=== PATIENT | male | born 1970 | race American Indian/Alaskan Native ===

== ENCOUNTER 2017-05-14 18:36 | Emergency (ER) | payer SELFPAY ==
[2017-05-14 18:37] VITALS: BMI 20.3
[2017-05-14 19:08] VITALS: BP 108/69; PULSE 102; RESP 14; TEMP 98.7; O2SAT 96
--- NOTE | 2017-05-14 20:56 | C.PDOC ---
History Of Present Illness Patient is a 47 y/o male brought in by EMS after he was found intoxicated. Per family, patient has a history of heroin abuse, and was recently in an outpatient 6 week rehab program. Patient admits to using heroin today, 2-3 bags intranasal around 6-7pm. Also took shots of Lcuy today. Usually drinks 1/ 2 pint of alcohol per day. Patient states he is not interested in detox and is requesting to leave to return to retirement. Speaking in full sentences. Patient initially interviewed by medical student; went to evaluate patient and he had eloped from ER PMD: None Time Seen by Provider: 05/14/17 20:16 Chief Complaint (Nursing): Substance Abuse History Per: Patient History/Exam Limitations: no limitations Onset/Duration Of Symptoms: Hrs Current Symptoms Are (Timing): Still Present Suicide/Self Injury Attempted (Context): None Modifying Factor(s): Alcohol, Other (Heroin) Additional History Per: Past Medical History Reviewed: Historical Data, Nursing Documentation, Vital Signs Vital Signs: Last Vital Signs Temp 98.7 F 05/14/17 19:07 Pulse 102 H 05/14/17 19:07 Resp 14 05/14/17 19:07 BP 108/69 05/14/17 19:07 Pulse Ox 96 05/14/17 21:01 - Medical History PMH: Denies: Diabetes, Hepatitis, HIV, HTN, Seizures, Sexually Transmitted Disease - [facility] DETOXIFICATION SERVICES FOR SUBSTANCE ABUSE TREATMENT (04/05/15) [employer] FOR SUBSTANCE ABUSE TREATMENT, PSYCHOEDUCATION (04/05/15) Family History: States: No Known Family Hx - Social History Hx Alcohol Use: No Hx Substance Use: Yes (heroin) - Immunization History Hx Tetanus Toxoid Vaccination: No Hx Influenza Vaccination: No Hx Pneumococcal Vaccination: No Review Of Systems Except As Marked, All Systems Reviewed And Found Negative. Constitutional: Positive for: Other (substance abuse) Psych: Negative for: Suicidal ideation (and homicidal ideation) Physical Exam - Physical Exam Additional Physical Exam Comments: Unable to examine due to pt eloping ED Course And Treatment O2 Sat by Pulse Oximetry: 96 (RA) Pulse Ox Interpretation: Normal Disposition - Disposition Disposition: ELOPEMENT - ER ONLY Disposition Time: 20:37 Condition: UNKNOWN Forms: [facility] (Palestinian) - Clinical Impression Clinical Impression: Polysubstance abuse - Scribe Statement The provider has reviewed the documentation as recorded by the Scribe (Etta Pendleton) Provider Attestation: All medical record entries made by the Scribe were at my direction and personally dictated by me. I have reviewed the chart and agree that the record accurately reflects my personal performance of the history, physical exam, medical decision making, and the department course for this patient. I have also personally directed, reviewed, and agree with the discharge instructions and disposition.
== END 2017-05-14 20:30 | disposition left against medical advice (07) ==
LOC: C.ER 18:36
DX: F19.10 Other psychoactive substance abuse, uncomplicated (principal)